=== PATIENT | male | born 1945 | race Caucasian/White ===

== ENCOUNTER 2017-03-30 08:18 | Inpatient (IN) | payer BC, OTHER ==
[2017-03-29 15:07] VITALS: BMI 29.8
[2017-03-30] MEDS ORDERED: LIDOCAINE HCL/PF 2% SDV 5ML VIAL ONE (08:42)
[2017-03-30] MEDS ORDERED: PROPOFOL 20 ML ONE ×2 (08:42)
[2017-03-30] MEDS ORDERED: ROCURONIUM BROMIDE 50 MG/5 ML VIAL ONE ×3 (08:43→10:56)
[2017-03-30] MEDS ORDERED: MIDAZOLAM HCL 2 MG/2 ML SINGLE DOSE VIAL ONE ×3 (08:43)
[2017-03-30] MEDS ORDERED: HEPARIN NA (PORCINE) 5,000 UNITS/ML 1ML VIAL ONE ×2 (08:44→10:50)
--- NOTE | 2017-03-30 09:20 | HP ---
History & Physical Update - History History: No Change - Physical Physical: No Change - Assessment Assessment: No Change - Plan Plan: No Change (Here today for elective endovascular repair of his AAA)
[2017-03-30] MEDS ORDERED: CEFAZOLIN 2 GM/D5W 50 ML IVPB ONE (09:30)
[2017-03-30] MEDS ORDERED: ETOMIDATE 20 MG/10 ML AMPUL IVPUSH ONE (09:50)
[2017-03-30] MEDS ORDERED: PHENYLEPHRINE HCL 10 MG/1 ML SINGLE DOSE VIAL ONE (09:55)
[2017-03-30] MEDS ORDERED: ceFAZolin SODIUM 1 GM VIAL IVPB ONE (10:10)
[2017-03-30] MEDS ORDERED: ceFAZolin SODIUM 1 GM VIAL ONE (10:11)
[2017-03-30] MEDS ORDERED: VASOPRESSIN 20 UNITS/ML VIAL IV ONE (10:18)
[2017-03-30] MEDS ORDERED: DEXAMETHASONE SOD PHOSPHATE 4 MG/1 ML VIAL ONE (10:51)
[2017-03-30] MEDS ORDERED: NEOSTIGMINE METHYLSULFATE 0.5 MG/ML - 10 ML MDV ONE (11:38)
[2017-03-30] MEDS ORDERED: GLYCOPYRROLATE 0.2 MG/1 ML VIAL ONE (11:42)
--- NOTE | 2017-03-30 12:15 | OP ---
Operative Note - Note: Operative Date: 03/30/17 Pre-Operative Diagnosis: AAA Operation: endovascular repair of AAA Post-Operative Diagnosis: Same as Pre-op Surgeon: Dimas Luis Trimmer Machine: Remberto Durán Anesthesia: General Estimated Blood Loss (mls): 100 Operative Report Dictated: Yes
--- NOTE | 2017-03-30 12:20 | SURG ---
Surgery Slate Cutter Operator Note Slate Cutter Operator: Remberto Duárn PA-C Date of Service: 03/30/17 Diagnosis: Abdominal aortic aneurysm Procedure: Endovascular repair of abdominal aortic aneurysm I was present for the entirety of the operative procedure. For further detail, please refer to operative report. Visit type - Case Type Case Type: Scheduled Admission - New patient This patient is new to me today: Yes Date on this admission: 03/30/17
[2017-03-30] MEDS ORDERED: [UNRECOGNIZED DRUG - REMARK] PO PRN (12:23)
[2017-03-30] MEDS ORDERED: PATIENT'S OWN MEDICATION (NON-FORMULARY) (Hydrocodone/Acetaminophen [Vicodin 5-300 Mg Tabl PO PRN (12:23)
[2017-03-30] MEDS ORDERED: HYDROmorphone HCL CARPU-JECT 2 MG/1 ML DISP.SYRIN IVPUSH ONE ×3 (12:25→12:45)
[2017-03-30] MEDS ORDERED: HYDROmorphone HCL CARPU-JECT 2 MG/1 ML DISP.SYRIN ONE (12:30)
[2017-03-30] MEDS ORDERED: ACETAMINOPHEN 1000 MG/100 ML VIAL (NON FORMULARY) IVPB ONE ×2 (12:40→13:15)
[2017-03-30] MEDS ORDERED: ONDANSETRON 4 MG/2 ML VIAL IVPUSH PRN (14:00)
--- NOTE | 2017-03-30 16:10 | CONSULT ---
Consultation: REQUESTING PROVIDER: Dr Dimas Luis CONSULT REQUEST: We have been asked to medically evaluate this patient for ( post up ccu care). HISTORY OF PRESENT ILLNESS: This is a 68 yo M, with a PMH of AAA, past smoking, HTN, HLD, COPD, NIDDM2, bilateral inguinal hernia repair, and multiple lumbar disc herniations, who presents immediately s/p uncomplicated elective EVAR with minimal procedural blood loss of 100 cc. Post op patient was extubated and remains aaox3, afebrile and hemodynamically stable. Pain is well controlled with dilaudid and percocet. Guerra and A line to come out at 7 am prior to d/c. Patient complains of chronic back pain but denies chest pain, palpitations, sob, difficulty swallowing, leg pain, abd pain, n/v. REVIEW OF SYSTEMS: CONSTITUTIONAL: Absent: fever, chills HEENT: Absent: rhinorrhea, nasal congestion, difficulty swallowing, visual changes CARDIOVASCULAR: Absent: chest pain, syncope, palpitations, irregular heart rate, lightheadedness , peripheral edema RESPIRATORY: Absent: cough, shortness of breath, orthopnea, hemoptysis GASTROINTESTINAL: Absent: abdominal pain, abdominal distension, nausea, vomiting, diarrhea, constipation, melena, hematochezia GENITOURINARY: Absent: dysuria MUSCULOSKELETAL: Absent: myalgia, arthralgia, neck pain SKIN: Absent: rash, itching, pallor HEMATOLOGIC/IMMUNOLOGIC: Absent: easy bleeding, easy bruising ENDOCRINE: Absent: heat intolerance, cold intolerance NEUROLOGIC: Absent: headache, focal weakness or paresthesias PSYCHIATRIC: Absent: anxiety, depression PHYSICAL EXAMINATION Vital Signs - 24 hr 03/30/17 03/30/17 03/30/17 08:41 08:47 12:09 Temperature 97.5 F L 98.3 F Pulse Rate 109 H 94 H Respiratory 20 16 Rate Blood Pressure 145/73 118/50 O2 Sat by Pulse 94 L 93 L Oximetry (%) 03/30/17 03/30/17 03/30/17 12:25 12:40 12:55 Temperature Pulse Rate 94 H 92 H 94 H Respiratory 16 16 16 Rate Blood Pressure 107/60 104/60 126/60 O2 Sat by Pulse 96 96 96 Oximetry (%) 03/30/17 03/30/17 03/30/17 13:10 13:25 13:40 Temperature Pulse Rate 96 H 92 H 96 H Respiratory 16 16 16 Rate Blood Pressure 112/50 126/62 119/69 O2 Sat by Pulse 96 96 96 Oximetry (%) 03/30/17 03/30/17 13:55 15:18 Temperature 98.3 F 97.5 F L Pulse Rate 96 H 102 H Respiratory 16 20 Rate Blood Pressure 122/60 120/66 O2 Sat by Pulse Oximetry (%) GENERAL: Awake, alert, and fully oriented, in no acute distress. HEAD: Normal with no signs of trauma. EYES: Pupils equal, round and reactive to light, extraocular movements intact, sclera anicteric, conjunctiva clear. L eye lateral gaze (chronic) EARS, NOSE, THROAT: Moist mucous membranes. NECK: supple without, JVD LUNGS: Breath sounds equal, clear to auscultation bilaterally. HEART: Regular rate and rhythm, normal S1 and S2 ABDOMEN: Soft, nontender, not distended, normoactive bowel sounds, no guarding, no rebound, no masses. clean dressings on b/l ingional regions, no evidence of hematoma or bleeding MUSCULOSKELETAL: No CVA tenderness. UPPER EXTREMITIES: 2+ pulses, warm, well-perfused. No peripheral edema. LOWER EXTREMITIES: dopplerable dp and pt pulses, warm, well-perfused. No calf tenderness. No peripheral edema. no evidence of peripheral arterial clot in toes NEUROLOGICAL: Cranial nerves II-XII intact aside from L meidal rectus which appears impaired. Normal speech. PSYCHIATRIC: Cooperative. Good eye contact. Appropriate mood and affect. SKIN: Warm, dry, normal turgor Laboratory Results - last 24 hr 03/30/17 03/30/17 03/30/17 08:19 08:21 08:43 POC Glucometer 144 Blood Type A POSITIVE A POSITIVE Antibody Screen Negative Crossmatch See Detail Active Medications Generic Name Dose Route Start Last Admin Trade Name Freq PRN Reason Stop Dose Admin Aclidinium [place] 1 puff 03/30/17 22:00 Tudorza - IH BID KIANA Aspirin 81 mg 03/31/17 10:00 Ecotrin - PO DAILY KIANA Enalapril Maleate 10 mg 03/31/17 10:00 Vasotec - PO DAILY KIANA Fentanyl 50 mcg 03/30/17 14:00 Sublimaze Injection - IVPUSH 04/02/17 14:01 [id number] PRN PAIN Gemfibrozil 600 mg 03/30/17 16:30 Lopid - PO BID@0700,1630 [facility] Heparin Sodium (Porcine) 5,000 unit 03/30/17 18:00 Heparin - SQ Q8H-IV KIANA Hydromorphone HCl 1 mg 03/30/17 12:25 Dilaudid Injection - IVPUSH Q4H PRN PAIN Cefazolin Sodium/Dextrose 50 mls @ 100 mls/hr 03/30/17 18:00 Ancef 2 Gm Premixed Ivpb - IVPB 03/31/17 17:59 Q8HIV KIANA Lactated Ringer's 1,000 mls @ 75 mls/hr 03/30/17 14:00 Lactated Ringers Solution IV ASDIR [facility] Metformin HCl 1,000 mg 03/30/17 16:30 Glucophage Xr - PO BIDAC KIANA Non-Formulary Medication 10 mg 03/30/17 12:23 Chlorpheniramine Maleate [Allergy Relief] PO PRN PRN ALLERGIES Non-Formulary Medication 1 each 03/30/17 12:23 Hydrocodone/Acetaminophen [Vicodin 5-300 Mg Tablet] PO PRN PRN BACK PAIN Ondansetron HCl 4 mg 03/30/17 14:00 Zofran Injection IVPUSH 03/30/17 20:01 Q6H PRN NAUSEA AND/OR VOMITING Tamsulosin HCl 0.4 mg 03/31/17 10:00 Flomax - PO DAILY [facility] Zolpidem Tartrate 5 mg 03/30/17 22:00 Ambien - PO [facility] ASSESSMENT/PLAN: This is a 68 yo M, with a PMH of AAA, smoking, HTN, HLD, COPD, NIDDM2, bilateral inguinal hernia repair, and multiple lumbar disc herniations, who presents immediately s/p uncomplicated elective EVAR with minimal procedural blood loss of 100 cc. Neuro -AAOx3 Pulm *COPD -successfully extubated; stable -NC O2 PRN -tudorza CV *AAA -POD0 s/p elective EVAR -uncomplicated. Blood loss 100cc -f/u labs, monitor h/h -monitor peripheral pulses with doppler -Hep SQ -IV hydration -tele monitoring -remove a line at 7 am -dilaudid, percocet pain control -Ancef ppx -ASA 81 d *HTN -enalapril 10d *HLD -Lopid 600 bid GI/ -remove guerra at 7 am Endocrine *NIDDM -metformin *BPH -flomax FEN LR@75 f/u lytes diabetic diet Hep, diet Dispo: We will continue to follow the patient. Thank you for this consultative opportunity. Problem List - Problems (1) Abdominal aortic aneurysm Code(s): I71.4 - ABDOMINAL AORTIC ANEURYSM, WITHOUT RUPTURE (2) Left inguinal hernia Code(s): K40.90 - UNIL INGUINAL HERNIA, W/O OBST OR GANGR, NOT SPCF RECUR (3) Lower back pain Code(s): M54.5 - LOW BACK PAIN (4) HTN (hypertension) Code(s): I10 - ESSENTIAL (PRIMARY) HYPERTENSION (5) HLD (hyperlipidemia) Code(s): E78.5 - HYPERLIPIDEMIA, UNSPECIFIED (6) Diabetes Code(s): E11.9 - TYPE 2 DIABETES MELLITUS WITHOUT COMPLICATIONS (7) COPD (chronic obstructive pulmonary disease) Code(s): J44.9 - CHRONIC OBSTRUCTIVE PULMONARY DISEASE, UNSPECIFIED Visit type - Emergency Visit Emergency Visit: No - New Patient This patient is new to me today: Yes Date on this admission: 03/30/17 - Critical Care Critical Care patient: Yes Total Critical Care Time (in minutes): 35 Critical Care Statement: The care of this patient involved high complexity decision making to prevent further life threatening deterioration of the patient 's condition and/or to evaluate & treat vital organ system(s) failure or risk of failure.
[2017-03-30] MEDS: HYDROmorphone HCL CARPU-JECT 1 MG/1 ML DISP.SYRIN IVPUSH PRN ×2 (16:28→20:30)
[2017-03-30] MEDS: LACTATED RINGERS SOLUTION 1,000 ML IV SCH (16:30)
[2017-03-30] MEDS: GEMFIBROZIL 600 MG TABLET (FP) PO SCH (17:27)
[2017-03-30] MEDS: CEFAZOLIN 2 GM/D5W 50 ML IVPB SCH (17:28)
[2017-03-30] MEDS: HEPARIN NA (PORCINE) 5,000 UNITS/ML 1ML VIAL SQ SCH (17:29)
[2017-03-30 17:52] LABS: MCH 30.9 pg (25.7-33.7); MCHC 33.7 g/dl (32.0-35.9); MEAN CELL VOLUME 91.9 fl (80-96); MEAN PLT VOLUME 8.6 fl (7.5-11.1); PLATELET COUNT 300 K/MM3 (134-434); RDW 13.3 % (11.9-15.9); WHITE BLOOD COUNT 11.9 K/mm3 (4.0-10.0)
[2017-03-30 18:11] LABS: ALBUMIN 3.5 g/dl (3.4-5.0); ANION GAP 7 (8-16); BILIRUBIN,TOTAL 0.3 mg/dL (0.2-1.0); CALCIUM 8.8 mg/dL (8.5-10.1); CO2 25 mmol/L (21-32); GLUCOSE,RANDOM 125 mg/dL (74-106); MAGNESIUM 1.7 mg/dL (1.8-2.4); PHOSPHOROUS 3.1 mg/dL (2.5-4.9); SGOT/AST 19 U/L (15-37); SGPT/ALT 30 U/L (12-78)
[2017-03-30 18:15] LABS: ALK PHOS 44 U/L (45-117); CPK 203 IU/L (39-308); TOT PROT 6.8 g/dl (6.4-8.2); TROPONIN I < 0.02 ng/ml (0.00-0.05)
[2017-03-30] MEDS: oxyCODONE HCL 5 MG TABLET PO PRN (18:50)
[2017-03-30] MEDS ORDERED: MAGNESIUM SULF 50% (8.12 MEQ/2 ML-1 GM VIAL) IVPB ONE (20:42)
[2017-03-30] MEDS ORDERED: ZOLPIDEM TARTRATE 5 MG TABLET PO ONE (21:03)
[2017-03-30] MEDS ORDERED: ZOLPIDEM TARTRATE 5 MG TABLET PO SCH (22:00)
[2017-03-30] MEDS: ACLIDINIUM BROMIDE 400 MCG/INH AERO.POWD IH SCH (22:31)
[2017-03-31] MEDS: HEPARIN NA (PORCINE) 5,000 UNITS/ML 1ML VIAL SQ SCH ×3 (03:00→21:38)
[2017-03-31] MEDS: HYDROmorphone HCL CARPU-JECT 1 MG/1 ML DISP.SYRIN IVPUSH PRN ×2 (03:35→09:48)
[2017-03-31] MEDS: CEFAZOLIN 2 GM/D5W 50 ML IVPB SCH ×3 (04:00→17:20)
[2017-03-31] MEDS: GEMFIBROZIL 600 MG TABLET (FP) PO SCH ×2 (06:11→16:38)
[2017-03-31 07:00] LABS: MCH 30.8 pg (25.7-33.7); MCHC 33.6 g/dl (32.0-35.9); MEAN CELL VOLUME 91.9 fl (80-96); MEAN PLT VOLUME 8.9 fl (7.5-11.1); PLATELET COUNT 268 K/MM3 (134-434); RDW 13.4 % (11.9-15.9); WHITE BLOOD COUNT 9.3 K/mm3 (4.0-10.0)
[2017-03-31 08:30] LABS: ANION GAP 7 (8-16); CALCIUM 8.5 mg/dL (8.5-10.1); CO2 26 mmol/L (21-32); CREATININE 0.8 mg/dL (0.7-1.3); GLUCOSE,RANDOM 111 mg/dL (74-106); MAGNESIUM 1.9 mg/dL (1.8-2.4); PHOSPHOROUS 2.7 mg/dL (2.5-4.9)
--- NOTE | 2017-03-31 09:07 | PN ---
Physical Exam: 24H Events: SUBJECTIVE: Patient seen and examined OBJECTIVE: Vital Signs Period Temp Pulse Resp BP Sys/Fontaine Pulse Ox Last 24 Hr 97.5 F-99.9 F 83-102 16-22 104-131/50-76 93-96 Intake & Output 03/28/17 03/29/17 03/30/17 03/31/17 23:59 23:59 23:59 23:59 Intake Total 3900 637.5 Output Total 1800 Balance 2100 637.5 Weight 99.79 kg General: CBC, BMP 03/31/17 05:30 03/31/17 05:30 Hepatic Panel Total Bilirubin 0.3 mg/dL (0.2-1.0) 03/30/17 16:55 AST 19 U/L (15-37) 03/30/17 16:55 ALT 30 U/L (12-78) 03/30/17 16:55 Alkaline Phosphatase 44 U/L (45-117) L 03/30/17 16:55 Albumin 3.5 g/dl (3.4-5.0) 03/30/17 16:55 Active Medications Aclidinium [place] (Tudorza -) 1 puff IH BID [facility] Last Admin: 03/30/17 22:31 Dose: Not Given Aspirin (Ecotrin -) 81 mg PO DAILY [facility] Enalapril Maleate (Vasotec -) 10 mg PO DAILY [facility] Fentanyl (Sublimaze Injection -) 50 mcg IVPUSH [id number] PRN PRN Reason: PAIN Stop: 04/02/17 14:01 Last Admin: 03/30/17 21:00 Dose: 50 mcg Gemfibrozil (Lopid -) 600 mg PO BID@0700,1630 [facility] Last Admin: 03/31/17 06:11 Dose: 600 mg Heparin Sodium (Porcine) (Heparin -) 5,000 unit SQ Q8H-IV [facility] Last Admin: 03/31/17 03:00 Dose: 5,000 unit Hydromorphone HCl (Dilaudid Injection -) 1 mg IVPUSH Q4H PRN PRN Reason: PAIN Last Admin: 03/31/17 03:35 Dose: 1 mg Cefazolin Sodium/Dextrose (Ancef 2 Gm Premixed Ivpb -) 50 mls @ 100 mls/hr IVPB Q8HIV [facility] Stop: 03/31/17 17:59 Last Admin: 03/31/17 04:00 Dose: 100 mls/hr Lactated Ringer's (Lactated Ringers Solution) 1,000 mls @ 75 mls/hr IV ASDIR [facility] Last Admin: 03/30/17 16:30 Dose: 75 mls/hr Metformin HCl (Glucophage Xr -) 1,000 mg PO BIDAC [facility] Last Admin: 03/31/17 06:10 Dose: Not Given Non-Formulary Medication (Chlorpheniramine Maleate [Allergy Relief]) 10 mg PO PRN PRN PRN Reason: ALLERGIES Non-Formulary Medication (Hydrocodone/Acetaminophen [Vicodin 5-300 Mg Tablet]) 1 each PO PRN PRN PRN Reason: BACK PAIN Oxycodone HCl (Roxicodone -) 10 mg PO Q4H PRN PRN Reason: PAIN Last Admin: 03/30/17 18:50 Dose: 10 mg Tamsulosin HCl (Flomax -) 0.4 mg PO DAILY [facility] Zolpidem Tartrate (Ambien -) 5 mg PO HS [facility] Last Admin: 03/30/17 22:31 Dose: Not Given ASSESSMENT/PLAN:
[2017-03-31] MEDS ORDERED: ENALAPRIL MALEATE 10 MG TABLET (FP) PO SCH (10:00)
[2017-03-31] MEDS ORDERED: TAMSULOSIN HCL 0.4 MG CAP.ER.24H (FP) PO SCH (10:00)
[2017-03-31] MEDS ORDERED: ASPIRIN COATED 81 MG TABLET.EC PO SCH (10:00)
[2017-03-31] MEDS: ACLIDINIUM BROMIDE 400 MCG/INH AERO.POWD IH SCH ×2 (11:10→21:39)
[2017-03-31] MEDS: oxyCODONE HCL 5 MG TABLET PO PRN ×2 (12:14→19:32)
--- NOTE | 2017-03-31 12:17 | PN ---
Teaching Attending Note Name of Resident: Tamela Bullard ATTENDING PHYSICIAN STATEMENT I saw and evaluated the patient. I reviewed the resident's note and discussed the case with the resident. I agree with the resident's findings and plan as documented. SUBJECTIVE: Patient seen and examined in the ICU. Awake and alert. No CP or SOB. No bleeding from surgical site. Intake & Output 03/28/17 03/29/17 03/30/17 03/31/17 23:59 23:59 23:59 23:59 Intake Total 3900 637.5 Output Total 1800 Balance 2100 637.5 Weight 220 lb Last Vital Signs Temp Pulse Resp BP Pulse Ox 99.8 F H 91 H 11 L 143/73 95 03/31/17 11:00 03/31/17 11:00 03/31/17 11:00 03/31/17 11:00 03/31/17 09:00 Active Medications Aclidinium [place] (Tudorza -) 1 puff IH BID [facility] Last Admin: 03/31/17 11:10 Dose: 1 puff Aspirin (Ecotrin -) 81 mg PO DAILY [facility] Last Admin: 03/31/17 09:50 Dose: 81 mg Enalapril Maleate (Vasotec -) 10 mg PO DAILY [facility] Last Admin: 03/31/17 09:50 Dose: 10 mg Fentanyl (Sublimaze Injection -) 50 mcg IVPUSH [id number] PRN PRN Reason: PAIN Stop: 04/02/17 14:01 Last Admin: 03/30/17 21:00 Dose: 50 mcg Gemfibrozil (Lopid -) 600 mg PO BID@0700,1630 [facility] Last Admin: 03/31/17 06:11 Dose: 600 mg Heparin Sodium (Porcine) (Heparin -) 5,000 unit SQ Q8H-IV [facility] Last Admin: 03/31/17 09:49 Dose: 5,000 unit Hydromorphone HCl (Dilaudid Injection -) 1 mg IVPUSH Q4H PRN PRN Reason: PAIN Last Admin: 03/31/17 09:48 Dose: 1 mg Cefazolin Sodium/Dextrose (Ancef 2 Gm Premixed Ivpb -) 50 mls @ 100 mls/hr IVPB Q8HIV [facility] Stop: 03/31/17 17:59 Last Admin: 03/31/17 09:49 Dose: 100 mls/hr Lactated Ringer's (Lactated Ringers Solution) 1,000 mls @ 75 mls/hr IV ASDIR [facility] Last Admin: 03/30/17 16:30 Dose: 75 mls/hr Insulin Aspart (Novolog Vial Sliding Scale -) 1 vial SQ ACHS [facility] PRN Reason: Protocol Oxycodone HCl (Roxicodone -) 10 mg PO Q4H PRN PRN Reason: PAIN Last Admin: 03/30/17 18:50 Dose: 10 mg Tamsulosin HCl (Flomax -) 0.4 mg PO DAILY [facility] Last Admin: 03/31/17 10:39 Dose: 0.4 mg Zolpidem Tartrate (Ambien -) 5 mg PO HS [facility] Last Admin: 03/30/17 22:31 Dose: Not Given GENERAL: Awake, alert, and fully oriented, in no acute distress. HEAD: Normal with no signs of trauma. EYES: Pupils equal, sclera anicteric, conjunctiva clear. L eye lateral gaze ( chronic) EARS, NOSE, THROAT: Moist mucous membranes. NECK: supple without, JVD LUNGS: Breath sounds equal, clear to auscultation bilaterally. HEART: Regular rate and rhythm, normal S1 and S2 ABDOMEN: Soft, nontender, not distended, (+) BS, clean dressings on b/l inguinal regions, no evidence of hematoma or bleeding MUSCULOSKELETAL: No CVA tenderness. UPPER EXTREMITIES: 2+ pulses, warm, well-perfused. No peripheral edema. LOWER EXTREMITIES: dopplerable dp and pt pulses, warm, well-perfused. No calf tenderness. No peripheral edema. no evidence of peripheral arterial clot in toes NEUROLOGICAL: Non-focal PSYCHIATRIC: Cooperative. Good eye contact. Appropriate mood and affect. SKIN: Warm, dry, normal turgor Laboratory Results - last 24 hr 03/30/17 03/30/17 03/30/17 16:55 16:55 16:55 WBC 11.9 H RBC 4.18 Hgb 12.9 D Hct 38.4 D MCV 91.9 MCH 30.9 MCHC 33.7 RDW 13.3 Plt Count 300 D MPV 8.6 Sodium 138 Potassium 5.7 H Chloride 106 Carbon Dioxide 25 Anion Gap 7 L BUN 20 H Creatinine 1.0 Creat Clearance w eGFR > 60 Random Glucose 125 H D Lactic Acid 1.2 Calcium 8.8 Phosphorus 3.1 Magnesium 1.7 L Total Bilirubin 0.3 AST 19 ALT 30 Alkaline Phosphatase 44 L Creatine Kinase 203 Creatine Kinase Index 0.4 CK-MB (CK-2) < 1.000 Troponin I < 0.02 Total Protein 6.8 Albumin 3.5 03/31/17 03/31/17 05:30 05:30 WBC 9.3 RBC 4.00 Hgb 12.3 Hct 36.8 MCV 91.9 MCH 30.8 MCHC 33.6 RDW 13.4 Plt Count 268 MPV 8.9 Sodium 136 Potassium 4.6 Chloride 103 Carbon Dioxide 26 Anion Gap 7 L BUN 15 D Creatinine 0.8 Creat Clearance w eGFR Random Glucose 111 H Lactic Acid Calcium 8.5 Phosphorus 2.7 Magnesium 1.9 Total Bilirubin AST ALT Alkaline Phosphatase Creatine Kinase Creatine Kinase Index CK-MB (CK-2) Troponin I Total Protein Albumin ASSESSMENT/PLAN: S/P EVAR due to AAA Smoker HTN HPL HLD COPD NIDDM2 Bilateral inguinal hernia repair Multiple lumbar disc herniations Follow CBC O2 as needed Incentive Spirometry BD TX [facility] Problem List - Problems (1) Abdominal aortic aneurysm Code(s): I71.4 - ABDOMINAL AORTIC ANEURYSM, WITHOUT RUPTURE (2) Left inguinal hernia Code(s): K40.90 - UNIL INGUINAL HERNIA, W/O OBST OR GANGR, NOT SPCF RECUR (3) Lower back pain Code(s): M54.5 - LOW BACK PAIN (4) HTN (hypertension) Code(s): I10 - ESSENTIAL (PRIMARY) HYPERTENSION (5) HLD (hyperlipidemia) Code(s): E78.5 - HYPERLIPIDEMIA, UNSPECIFIED (6) Diabetes Code(s): E11.9 - TYPE 2 DIABETES MELLITUS WITHOUT COMPLICATIONS (7) COPD (chronic obstructive pulmonary disease) Code(s): J44.9 - CHRONIC OBSTRUCTIVE PULMONARY DISEASE, UNSPECIFIED ASSESSMENT/PLAN: S/P EVAR due to AAA Smoker HTN HPL HLD COPD NIDDM2 Bilateral inguinal hernia repair Multiple lumbar disc herniations Follow CBC O2 as needed Incentive Spirometry BD TX [facility] Floor ABX per ID Dr Blakely Critical care time spent in reviewing chart, evaluating patient and formulating plan - 35 minutes.
[2017-03-31] MEDS ORDERED: HYDROmorphone HCL CARPU-JECT 1 MG/1 ML DISP.SYRIN IVPUSH PRN (14:03)
[2017-03-31] MEDS ORDERED: LACTATED RINGERS SOLUTION 1,000 ML IV SCH (14:03)
[2017-03-31] MEDS ORDERED: CEFAZOLIN 2 GM/D5W 50 ML IVPB SCH (14:03)
--- NOTE | 2017-03-31 14:09 | PN ---
Physical Exam: SUBJECTIVE: Patient seen and examined by me at bedside. Patient S/P elective endovascular repair of AAA day #1 with no complications. Patient offers no complaints. Otherwise, patient denies fever, chills, nausea, vomiting, chest pain, palpitations, shortness of breath. OBJECTIVE: Vital Signs Period Temp Pulse Resp BP Sys/Fontaine Pulse Ox Last 24 Hr 97.5 F-100.1 F 83-102 10-22 116-143/52-76 93-96 GENERAL: The patient is awake, alert, and fully oriented, in no acute distress. LUNGS: Breath sounds equal, clear to auscultation bilaterally, no wheezes, no crackles, no accessory muscle use. HEART: Regular rate and rhythm, S1, S2 without murmur, rub or gallop. ABDOMEN: Soft, mild tenderness upon palpation of lower abdomen with wound dressing in bilateral lower abdomen C/D/I, nondistended, normoactive bowel sounds, no guarding EXTREMITIES: 2+ dt and pt pulses. no peripheral edema. No evidence of peripheral arterial clot in toes Laboratory Results - last 24 hr 03/30/17 03/30/17 03/30/17 16:55 16:55 16:55 WBC 11.9 H RBC 4.18 Hgb 12.9 D Hct 38.4 D MCV 91.9 MCH 30.9 MCHC 33.7 RDW 13.3 Plt Count 300 D MPV 8.6 Sodium 138 Potassium 5.7 H Chloride 106 Carbon Dioxide 25 Anion Gap 7 L BUN 20 H Creatinine 1.0 Creat Clearance w eGFR > 60 Random Glucose 125 H D Lactic Acid 1.2 Calcium 8.8 Phosphorus 3.1 Magnesium 1.7 L Total Bilirubin 0.3 AST 19 ALT 30 Alkaline Phosphatase 44 L Creatine Kinase 203 Creatine Kinase Index 0.4 CK-MB (CK-2) < 1.000 Troponin I < 0.02 Total Protein 6.8 Albumin 3.5 03/31/17 03/31/17 05:30 05:30 WBC 9.3 RBC 4.00 Hgb 12.3 Hct 36.8 MCV 91.9 MCH 30.8 MCHC 33.6 RDW 13.4 Plt Count 268 MPV 8.9 Sodium 136 Potassium 4.6 Chloride 103 Carbon Dioxide 26 Anion Gap 7 L BUN 15 D Creatinine 0.8 Creat Clearance w eGFR Random Glucose 111 H Lactic Acid Calcium 8.5 Phosphorus 2.7 Magnesium 1.9 Total Bilirubin AST ALT Alkaline Phosphatase Creatine Kinase Creatine Kinase Index CK-MB (CK-2) Troponin I Total Protein Albumin Active Medications Generic Name Dose Route Start Last Admin Trade Name Freq PRN Reason Stop Dose Admin Aclidinium [place] 1 puff 03/31/17 22:00 Tudorza - IH BID [facility] Aspirin 81 mg 04/01/17 10:00 Ecotrin - PO DAILY [facility] Enalapril Maleate 10 mg 04/01/17 10:00 Vasotec - PO DAILY [facility] Fentanyl 50 mcg 03/31/17 14:03 Sublimaze Injection - IVPUSH 04/02/17 14:01 [id number] PRN PAIN Gemfibrozil 600 mg 03/31/17 16:30 Lopid - PO BID@0700,1630 [facility] Heparin Sodium (Porcine) 5,000 unit 03/31/17 18:00 Heparin - SQ Q8H-IV [facility] Hydromorphone HCl 1 mg 03/31/17 14:03 Dilaudid Injection - IVPUSH Q4H PRN PAIN Cefazolin Sodium/Dextrose 50 mls @ 100 mls/hr 03/31/17 14:03 Ancef 2 Gm Premixed Ivpb - IVPB 03/31/17 17:59 Q8HIV [facility] Lactated Ringer's 1,000 mls @ 75 mls/hr 03/31/17 14:03 Lactated Ringers Solution IV ASDIR [facility] Insulin Aspart 1 vial 03/31/17 16:30 Novolog Vial Sliding Scale - SQ ACHS [facility] Protocol Oxycodone HCl 10 mg 03/31/17 14:03 Roxicodone - PO Q4H PRN PAIN Tamsulosin HCl 0.4 mg 04/01/17 10:00 Flomax - PO DAILY [facility] Zolpidem Tartrate 5 mg 03/31/17 22:00 Ambien - PO HS [facility] ASSESSMENT/PLAN: Patient is a 68 year old male with a PMHx of AAA, HTN, HLD, COPD, NIDDM2, who presented for elective EVAR and is now s/p EVAR here for observation. Cardiovascular: #AAA S/P EVAR -POD #1 with no complications -Frequent pulse checks with doppler -Pain control with Dilaudid 1mg Q4H PRN and Roxicodone PO 10mg Q4H -Continue Prophylaxis antibipitics with Ancef 2gm IV Q8H -Continue Heparin SQ 5000 units Q8H -Continue ASA 81mg PO daily #HTN -Continue Enalipril 10mg daily #HLD -Continue Lopid 600mg BID Pulmonology #COPD -Successfully extubated after procedure and stable -NC 02 PRN -Continue Tudorza Endocrine #NIDDMII -ISS -BGM -Continue Flomax 0.4mg daily FEN -On no fluids -Electrolytes wnl -Diabetic diet Prophylaxis -Heparin 5000 units SQ Q8H -No GI requirement Disposition -Deconditioning: PT -Full code -Transferred to the floors Visit type - Emergency Visit Emergency Visit: Yes ED Registration Date: 03/30/17 Care time: The patient presented to the Emergency Department on the above date and was hospitalized for further evaluation of their emergent condition. - New Patient This patient is new to me today: Yes Date on this admission: 03/31/17 - Critical Care Critical Care patient: Yes Total Critical Care Time (in minutes): 35 Critical Care Statement: The care of this patient involved high complexity decision making to prevent further life threatening deterioration of the patient 's condition and/or to evaluate & treat vital organ system(s) failure or risk of failure.
--- NOTE | 2017-03-31 14:12 | PN ---
Progress Note, Physician Chief Complaint: constipated no other complaints - Current Medication List Current Medications: Active Medications Aclidinium [place] (Tudorza -) 1 puff IH BID [facility] Aspirin (Ecotrin -) 81 mg PO DAILY [facility] Enalapril Maleate (Vasotec -) 10 mg PO DAILY [facility] Fentanyl (Sublimaze Injection -) 50 mcg IVPUSH [id number] PRN PRN Reason: PAIN Stop: 04/02/17 14:01 Gemfibrozil (Lopid -) 600 mg PO BID@0700,1630 [facility] Heparin Sodium (Porcine) (Heparin -) 5,000 unit SQ Q8H-IV [facility] Hydromorphone HCl (Dilaudid Injection -) 1 mg IVPUSH Q4H PRN PRN Reason: PAIN Cefazolin Sodium/Dextrose (Ancef 2 Gm Premixed Ivpb -) 50 mls @ 100 mls/hr IVPB Q8HIV [facility] Stop: 03/31/17 17:59 Lactated Ringer's (Lactated Ringers Solution) 1,000 mls @ 75 mls/hr IV ASDIR [facility] Insulin Aspart (Novolog Vial Sliding Scale -) 1 vial SQ ACHS [facility] PRN Reason: Protocol Oxycodone HCl (Roxicodone -) 10 mg PO Q4H PRN PRN Reason: PAIN Tamsulosin HCl (Flomax -) 0.4 mg PO DAILY [facility] Zolpidem Tartrate (Ambien -) 5 mg PO HS [facility] - Objective Vital Signs: Vital Signs Temperature 99.8 F H 03/31/17 11:00 Pulse Rate 100 H 03/31/17 13:00 Respiratory Rate 10 L 03/31/17 13:00 Blood Pressure 122/66 03/31/17 13:00 O2 Sat by Pulse Oximetry (%) 95 03/31/17 09:00 Constitutional: Yes: Well Nourished Eyes: Yes: WNL HENT: Yes: WNL Neck: Yes: WNL Cardiovascular: Yes: WNL Respiratory: Yes: SOB on Exertion Gastrointestinal: Yes: Hypoactive Bowel Sounds ...Rectal Exam: Yes: Deferred, Sphincter Tone Normal Breast(s): Yes: WNL Musculoskeletal: Yes: Back Pain Extremities: Yes: WNL Edema: No ...Motor Strength: WNL Psychiatric: Yes: WNL Labs: CBC, BMP 03/31/17 05:30 03/31/17 05:30 Assessment/Plan mirilax po 17 gms incentive spirometry oob ? d/c in am
--- NOTE | 2017-03-31 15:18 | PN ---
Progress Note (short form) - Note Progress Note: Pt seen this am, no complaints of leg pain. Voiding on own. guerra removed earlier today. tolerating a diet. Vital Signs Period Temp Pulse Resp BP Sys/Fontaine Pulse Ox Last 24 Hr 97.5 F-100.1 F 83-102 10-22 116-143/52-76 93-96 GEn: A&0x3, NAD ABD: soft, slight distended, non-tender. b/l dressing c/d/i LE: feet warm to touch B/l. Dorsi/plantar flexion 5/5 b/l. no calf tenderness or swelling b/l CBC, BMP 03/31/17 05:30 03/31/17 05:30 A/P: s/p EVAR, POD#1 cont regular diet oob to chair/ambulate Heparin SQ for DVT ppx continue aspirin plan for transfer to the floor as per ICU Stool softner ordered D/w Dr. Luis
[2017-03-31] MEDS ORDERED: HEMOQUE TEST 1 EACH EACH ONE ×2 (16:31→17:19)
[2017-03-31] MEDS: INSULIN SLIDING SCALE (NOVOLOG) 1 VIAL SQ SCH ×2 (16:38→21:33)
--- NOTE | 2017-03-31 17:18 | PN ---
Progress Note (short form) - Note Progress Note: Vascular surgery Pt seen and examined. S/P AAA endovascular repair. Doing well . Can be transfered to floor. Once ambulating can go home. Dimas jay DO
[2017-03-31] MEDS: DOCUSATE SODIUM 100 MG CAPSULE (FP) PO SCH ×2 (19:32→21:46)
[2017-03-31] MEDS ORDERED: INSULIN (NOVOLOG) ASPART 100 UNITS/ML 10ML VIAL ONE (20:29)
[2017-03-31] MEDS ORDERED: ZOLPIDEM TARTRATE 5 MG TABLET PO SCH (22:00)
[2017-03-31] MEDS ORDERED: DOCUSATE SODIUM 100 MG CAPSULE (FP) PO SCH (22:00)
[2017-04-01] MEDS: oxyCODONE HCL 5 MG TABLET PO PRN ×3 (00:22→13:18)
[2017-04-01] MEDS: CEFAZOLIN 2 GM/D5W 50 ML IVPB SCH ×2 (01:52→09:29)
[2017-04-01] MEDS: HEPARIN NA (PORCINE) 5,000 UNITS/ML 1ML VIAL SQ SCH ×2 (06:19→13:17)
[2017-04-01] MEDS: DOCUSATE SODIUM 100 MG CAPSULE (FP) PO SCH ×2 (06:20→13:18)
[2017-04-01] MEDS: INSULIN SLIDING SCALE (NOVOLOG) 1 VIAL SQ SCH ×2 (06:21→12:47)
[2017-04-01] MEDS: GEMFIBROZIL 600 MG TABLET (FP) PO SCH (06:21)
[2017-04-01 07:14] VITALS: TEMP 98.4
[2017-04-01 08:03] LABS: BASOPHIL 0.6 % (0-2.0); EOSINOPHIL 0.6 % (0-4.5); MCH 30.3 pg (25.7-33.7); MCHC 33.7 g/dl (32.0-35.9); MEAN CELL VOLUME 90.2 fl (80-96); MEAN PLT VOLUME 8.6 fl (7.5-11.1); NEUTROPHILS 70.1 % (42.8-82.8); PLATELET COUNT 248 K/MM3 (134-434); WHITE BLOOD COUNT 9.8 K/mm3 (4.0-10.0)
[2017-04-01] MEDS: LACTATED RINGERS SOLUTION 1,000 ML IV SCH (08:14)
[2017-04-01 08:26] VITALS: BP 143/80
[2017-04-01] MEDS ORDERED: TAMSULOSIN HCL 0.4 MG CAP.ER.24H (FP) PO SCH (08:30)
[2017-04-01 08:31] LABS: ALBUMIN 3.3 g/dl (3.4-5.0); ANION GAP 10 (8-16); CALCIUM 8.5 mg/dL (8.5-10.1); CO2 25 mmol/L (21-32); GLUCOSE,RANDOM 99 mg/dL (74-106); MAGNESIUM 1.8 mg/dL (1.8-2.4)
[2017-04-01 08:35] LABS: ALK PHOS 37 U/L (45-117); BILIRUBIN,TOTAL 0.7 mg/dL (0.2-1.0); CREATININE 0.9 mg/dL (0.7-1.3); PHOSPHOROUS 2.2 mg/dL (2.5-4.9); SGOT/AST 19 U/L (15-37); SGPT/ALT 20 U/L (12-78); TOT PROT 6.6 g/dl (6.4-8.2)
[2017-04-01] MEDS: ACLIDINIUM BROMIDE 400 MCG/INH AERO.POWD IH SCH (09:30)
[2017-04-01] MEDS ORDERED: ASPIRIN COATED 81 MG TABLET.EC PO SCH (10:00)
[2017-04-01] MEDS ORDERED: POLYETHYLENE GLYCOL 3350 119 GM BTL PO SCH (10:00)
[2017-04-01] MEDS ORDERED: ENALAPRIL MALEATE 10 MG TABLET (FP) PO SCH (10:00)
--- NOTE | 2017-04-01 11:45 | PN ---
Progress Note (short form) - Note Progress Note: Vascular surgery Pt seen and examined. Doing well. Dressing changed. Can be D/C home. Has appt for apr 10. Will send percocet script to pharmacy Will give enema for constipation Dimas jay DO
[2017-04-01] MEDS ORDERED: SODIUM PHOSPHATE/NA BIPHOS 133 ML ENEMA PR ONE (12:30)
[2017-04-01 14:26] VITALS: PULSE 105
--- NOTE | 2017-04-06 08:05 | OP ---
DATE OF OPERATION: 03/30/2017 PREOPERATIVE DIAGNOSIS: A 5.6-cm abdominal aortic aneurysm. POSTOPERATIVE DIAGNOSIS: A 5.6-cm abdominal aortic aneurysm. PROCEDURE: Endovascular repair of abdominal aortic aneurysm. SURGEON: Dimas Anglin DO ANESTHESIA: General. BLOOD LOSS: 100 mL. The patient is a 72-year-old male that was an ex-smoker in the past for about 40 years. Has a 5.6-cm triple "A." Two years ago, the abdominal aortic aneurysm was about 4.6 and now has grown to 5.6 which is the reason why we are repairing it. Patient was consented for the procedure, understanding all risks, benefits, alternatives. Was then brought into the operating room. Once in the operating room was laid on the operating room table in the supine manner and the area of the bilateral groins and thighs and the entire chest below the nipples was prepped and draped in a sterile surgical manner. We then under ultrasound guidance visualized the right and left common femoral arteries and a transverse incision was drawn around it. We then went ahead and working with the SARAH Durán we were able to open both groins. Using a 15 blade, we were able to make an incision in the right groin and the left groin. Bovie electrocautery was used to control hemostasis and we were able to get through all the subcutaneous tissue and get down into the femoral sheath. Femoral sheath was then opened using Metzenbaum scissors and we were able to then dissect out our common femoral artery and vessel loops were placed anterior and posteriorly on the artery. We were then able to do the same for the other groin and we were able to isolate the common femoral artery and place vessel loops proximally and distally. Once that was performed, we administered the patient 5000 units of IV heparin. We then took a micropuncture needle and punctured the right common femoral artery and micropuncture wire was inserted. A micropuncture sheath was inserted and we were able to place a 0.035 floppy guidewire up through the abdominal aortic aneurysm. We then went ahead and exchanged that. Using a [place] catheter, we exchanged that for a Lunderquist wire. In the left groin, we were able to use a micropuncture needle and puncture the left common femoral artery. Micropuncture wire was inserted and a traditional 8-Senegalese sheath was placed. In the right groin, we had an 8-Senegalese sheath in place as well. We placed a 0.035 floppy guidewire up the left common femoral artery into the aorta and into the suprarenal aorta. We then placed a sizing catheter up. Through the sizing catheter, we then visualized the abdominal aortic aneurysm via power injection and we were able to juana of our renal arteries on the screen. We then went ahead and brought the sizing catheter up. We then went ahead and placed our 1st limb, our bifurcated graft up the right common femoral artery. The 8-Senegalese sheath was removed and we were able to place a 28 x 14 103 bifurcated Endurant II stent graft system and we were able to place that below the renals and we were able to deploy it about 90% with the gate facing anteriorly. Once that was in place, we then went up the other side and we were able to use a Gerardo catheter. We then went ahead and used a Gerardo catheter and we were able to selectively cannulate our gate using a 0.035 floppy guidewire and the wire was placed into the stent graft. We then exchanged the [place] catheter for a sizing catheter and the sizing catheter turned inside the stent graft system and we were able to exchange for a Lunderquist wire and placed the Lunderquist wire up into the suprarenal aorta. We went ahead and placed our contra limb and we placed a 16 x 10 124 Endurant II contralateral limb and that was placed down above the left hypogastric artery. Prior to deploying our contralateral limb, we had taken an angiogram through our 8-Senegalese sheath in the left common femoral artery and we were able to juana off our hypogastric artery. Once that was done, we went ahead and completely deployed our bifurcated graft and we then went ahead and shot an angiogram through the right common femoral artery sheath and we were able to juana off our right hypogastric artery and we were then able to deploy the distal limb on the right side and we placed a 16 x 10 124 limb down into the right hypogastric artery. Once all the limbs had been deployed, we went ahead and used 2 Reliant balloons and ballooned the graft system into place. We then went ahead and placed our sizing catheter up to below the renals and under power injection we were able to shoot an aortogram which showed that the aneurysm was now excluded and there was good flow all the way through the graft and into the femoral arteries. At this point, we removed our sheath and we got proximal and distal control on the right and left common femoral artery. Using 6-0 Prolene double arm, we were able to close our arteriotomy in an interrupted manner. Once we closed the right common femoral artery arteriotomy, we opened the distal artery first and then the proximal artery and there was minimal bleeding. There was a good pulse in the artery and the wound was irrigated and Surgicel was placed. We then went ahead and went over to the left common femoral artery and using 6-0 Prolene double arm we closed the arteriotomy in an interrupted manner. We then opened the distal artery first and then the proximal artery and there was a good pulse in the artery and there was minimal bleeding. The wound was well irrigated and Surgicel was placed. Using 3-0 Vicryl, we were able to close the subcutaneous tissue in an interrupted manner and the skin was closed with skin mandi for both wounds. We then went ahead and placed 4 x 4 Tegaderms on both wounds and the patient was transferred to PACU in a stable condition. Patient had palpable pulses in both limbs. Patient tolerated his procedure with no complications. Total blood loss: 100 mL. DIMAS ANGLIN DO [id number]
== END 2017-04-01 15:28 | disposition home or self-care (01) | DRG 269 ==
LOC: JASUSAT 08:18 → JSAMEDAYSX 12:20 → JICU 14:20 → J8W 03-31 20:04
PROVIDERS: ADMIT Surgery Vascular Surgery; ATTEND Surgery Vascular Surgery
PROC: 04V03DZ Restriction of Abdominal Aorta with Intraluminal Device, Percutaneous Approach (ICD-10-PCS; principal; 2017-03-30 09:00)
DX: I71.4 Abdominal aortic aneurysm, without rupture (principal); I10 Essential (primary) hypertension; M54.5 Low back pain; E11.9 Type 2 diabetes mellitus without complications; E78.5 Hyperlipidemia, unspecified; J44.9 Chronic obstructive pulmonary disease, unspecified; K40.90 Unilateral inguinal hernia, without obstruction or gangrene, not specified as recurrent; M51.26 Other intervertebral disc displacement, lumbar region; E66.8 Other obesity; Z68.29 Body mass index [BMI] 29.0-29.9, adult; Z87.891 Personal history of nicotine dependence
CPT/HCPCS: 36415; 76000-TC; 80048; 80053; 82553; 83605; 83735; 84100; 84484; 85025; 85027; 86850; 86900; 86901; 86922; 94760; J1644

== ENCOUNTER 2017-12-20 07:32 | Day surgery (SDC) | payer BC ==
--- NOTE | 2017-11-28 11:49 | HP ---
DATE OF DICTATION: 10/31/2017 DATE OF SURGERY: 12/20/2017 REASON FOR ADMISSION: Cholelithiasis. BRIEF HISTORY: This is a 72-year-old gentleman whose history dates back approximately 1 to 1-1/2 years when he underwent imaging studies for his back. Along with gallstones, he was noted to have an aneurysm that was incidentally picked up. The aneurysm underwent percutaneous repair by Dr. Luis approximately one year ago. The patient is now here to deal with his gallstones. The patient had an ultrasound as well as a CAT scan of the abdomen and pelvis at [facility] in January 2017 that demonstrated findings consistent with cholelithiasis without evidence of acute cholecystitis. He states he currently has a bloating sensation at times. He has a +/- history of fatty food intolerable and has had occasional bouts of nonspecific abdominal pain in the upper abdomen, more consistent with bloating. He has had no change in stool color or urine color. PAST MEDICAL HISTORY: Significant hypertension, hypercholesterolemia, diabetes , eye disease, COPD and the aneurysm, as discussed. MEDICATIONS: 1. Enalapril. 2. Hydrocodone. 3. Ambien. 4. Tamsulosin. 5. Metformin. 6. Spiriva. 7. Gemfibrozil. 8. Ventolin. 9. Aspirin. 10. Nasacort. 11. Various eye drops. 12. Anoro Ellipta. ALLERGIES: CIPRO. SOCIAL HISTORY: He does not smoke or drink. PHYSICAL EXAMINATION: ABDOMEN: Soft, nontender and nondistended. The patient has a very protuberant abdomen. He has an upper midline diastasis from the xiphoid to the umbilicus. He has a chronically incarcerated umbilical hernia as an incidental finding. IMPRESSION/PLAN: Cholelithiasis. This is a 72-year-old gentleman with a multitude of medical problems who was noted to have cholelithiasis on a workup for his back. At this point, I am not entirely sure if he is truly symptomatic from his biliary disease or if these symptoms of generalized bloating and abdominal pain are related to other causes. In any event, the patient has a multitude of medical problems. We have discussed the pros and cons of performing elective cholecystectomy with these medical comorbidities vs. an emergent cholecystectomy. The patient and I both feel that he is better off undergoing an elective cholecystectomy and therefore, he has opted to proceed with a laparoscopic cholecystectomy at this time. The indications, alternatives and complications of the procedure were discussed and questions answered. We will plan to obtain written consent on the day of surgery. BAILEY IRVIN M.D. [id number] CC: German Hand M.D. MTDD
--- NOTE | 2017-12-19 14:46 | HP ---
DATE OF ADMISSION: 12/20/2017 Patient to undergo surgery tomorrow, December 20, 2017. HISTORY: This is a 72-year-old man who was scheduled to undergo a laparoscopic cholecystectomy under the care of Dr. Valdes for cholelithiasis and chronic cholecystitis. Now, Dr. Valdes unfortunately is not available for the procedure, and after the patient was informed, he opted to have me remove his gallbladder. As far back as 1-2 years, imaging studies have revealed evidence of findings consistent with cholecystitis and chronic cholecystitis. There has never been documented acute cholecystitis. Patient does have complaints of bloating and mild fatty-food intolerance as well. He has also had occasional bouts of rather nonspecific upper abdominal discomfort. It has been difficult to ascertain whether these symptoms are related to his gallbladder. Nonetheless, after discussion, patient had opted for cholecystectomy. PAST MEDICAL HISTORY: Significant for hypertension, hypercholesterolemia, diabetes, eye disease, COPD, and a history of cardiovascular disease with aneurysm. MEDICATIONS: Multiple, include enalapril, hydrocodone, Ambien, Flomax, metformin, Spiriva, gemfibrozil, Ventolin, aspirin, Nasacort, eye drops. ALLERGIES: CIPRO. SOCIAL HISTORY: Negative tobacco. Negative alcohol. PHYSICAL EXAMINATION: Abdomen: Soft, nontender. IMPRESSION: Cholecystitis/cholelithiasis. PLAN: Elective laparoscopic cholecystectomy, possible open cholecystectomy. Indications, alternatives, and possible complications were reviewed. Consent obtained. Patient to be seen preoperatively by Dr. German aHnd of the medical service. Please refer to those notes for those medical details. HANNAH BAEZ M.D. [id number]
[2017-12-19 15:46] VITALS: BMI 27.7
[2017-12-20] MEDS ORDERED: ERTAPENEM SODIUM 1 GM VIAL ONE (08:01)
[2017-12-20] MEDS ORDERED: ONDANSETRON 4 MG/2 ML VIAL IVPUSH PRN ×2 (09:01→10:43)
[2017-12-20] MEDS ORDERED: morphine SULFATE 4 MG/ML VIAL IVPB PRN (09:01)
[2017-12-20] MEDS ORDERED: MIDAZOLAM HCL 2 MG/2 ML SINGLE DOSE VIAL ONE (09:24)
[2017-12-20] MEDS ORDERED: PROPOFOL 20 ML ONE ×2 (09:30→10:07)
[2017-12-20] MEDS ORDERED: fentaNYL CITRATE 250 MCG/5 ML VIAL ONE (09:30)
[2017-12-20] MEDS ORDERED: ROCURONIUM BROMIDE 50 MG/5 ML VIAL ONE (09:31)
[2017-12-20] MEDS ORDERED: ERTAPENEM SODIUM 1 GM VIAL IVPB ONE (09:41)
[2017-12-20] MEDS ORDERED: DEXAMETHASONE SOD PHOSPHATE 4 MG/1 ML VIAL ONE (09:45)
[2017-12-20] MEDS ORDERED: DESFLURANE GAS 240 ML BOTTLE IH ONE (09:49)
[2017-12-20] MEDS ORDERED: ASPIRIN COATED 81 MG TABLET.EC PO SCH (10:00)
[2017-12-20] MEDS ORDERED: PATIENT'S OWN MEDICATION (NON-FORMULARY) (Triamcinolone Acetonide [Nasacort] 10.8 ML) NS SCH (10:00)
[2017-12-20] MEDS ORDERED: ARTIFICIAL TEARS (POLYVINYL ALCOHOL 1.4%) OPTH DROPS OU SCH ×2 (10:00→16:04)
[2017-12-20] MEDS ORDERED: PATIENT'S OWN MEDICATION (NON-FORMULARY) (Umeclidinium Brm/Vilanterol Tr [Anoro Ellipta 62 IH SCH (10:00)
[2017-12-20] MEDS ORDERED: ROSUVASTATIN CA 40 MG TABLET PO SCH ×2 (10:00→22:00)
[2017-12-20] MEDS ORDERED: ENOXAPARIN NA (PORCINE) 40 MG/0.4 ML DISP.SYRIN SQ SCH (10:00)
[2017-12-20] MEDS ORDERED: NEOSTIGMINE METHYLSULFATE 0.5 MG/ML - 10 ML MDV ONE (10:12)
[2017-12-20] MEDS ORDERED: GLYCOPYRROLATE 0.2 MG/1 ML VIAL ONE (10:13)
[2017-12-20] MEDS ORDERED: ALBUTEROL SO4 0.083% IH SOL 2.5 MG/3 ML VIAL.NEB. NEB ONE (10:43)
[2017-12-20] MEDS ORDERED: LACTATED RINGERS SOLUTION 1,000 ML IV SCH (10:45)
[2017-12-20] MEDS ORDERED: ACETAMINOPHEN INJECTION 100 ML IVPB ONE (11:34)
[2017-12-20] MEDS ORDERED: ACETAMINOPHEN 1000 MG/100 ML VIAL (NON FORMULARY) IVPB ONE (12:55)
--- NOTE | 2017-12-20 13:25 | OP ---
DATE OF OPERATION: 12/20/2017 PREOPERATIVE DIAGNOSIS: Chronic cholecystitis/cholelithiasis. POST OPERATIVE DIAGNOSIS: Chronic cholecystitis/cholelithiasis. PROCEDURE: Laparoscopic cholecystectomy. OPERATING SURGEON: Van Fletcher M.D. PROFESSOR OF MECHANICAL ENGINEERING: Yoseph King D.O. ANESTHESIA: Edmond Whitfield M.D. (general) HISTORY: A 72-year-old man with vague upper abdominal complaints and found to have gallstones. Patient with multiple medical issues and felt better to remove his gallbladder uncontrolled elective conditions as it was felt he would not fare as well if he presented with an acute problem. Indications, alternatives and possible complications were reviewed, consent obtained. DESCRIPTION OF PROCEDURE: With the patient in the supine position and after general anesthesia, the abdomen was prepped and draped in the usual sterile fashion using chlorhexidine. An infraumbilical incision was made through with a Veress needle was placed into the abdominal cavity. The abdominal cavity was insufflated to an adequate pressure and volume using CO2 gas. The Veress needle was removed. An 11 mm trocar port placed through the infraumbilical wound. The camera lens was passed through this port and intraabdominal cavity visualized. Two 5 mm right inferolateral ports were placed through which clamps were passed to maintain traction and aid in the dissection. An 11 mm port was placed in the epigastrium through which the operating instruments were passed. Limited exploration of the abdomen revealed several adhesions of bowel to gallbladder. The gallbladder itself, however, was pale brown color and quite thin in appearance. There were no acute inflammatory changes. The adhesions were taken down under direct vision, exposing the entire gallbladder and hepatoduodenal ligament. The peritoneum and hepatoduodenal were incised. The cystic duct was identified. The cystic duct was clipped proximally and distally and divided. The adjacent artery was managed similarly. The gallbladder was then removed from the gallbladder bladder bed, lysing its attachments to the liver using electrocautery. Prior to complete disconnection the bed was inspected and adequate hemostasis was noted. The gallbladder was disconnected and placed in a retrieval bag. The abdomen was then irrigated. The right upper quadrant was irrigated, the irrigant retrieved. Adequate hemostasis had been assured. All ports were removed under direct vision with no bleeding identified. Ultimately the gallbladder was delivered via the umbilical incision in its retrieval bag and without difficulty. Air from the peritoneum was allowed to escape. The fascia at the infraumbilical region was closed using interrupted 0-Vicryl sutures. Subcuticular Biosyn was used to close all skin incisions. COUNTS: Instrument counts were correct. ESTIMATED BLOOD LOSS: Minimal. SPECIMEN: Gallbladder. DRAINS: None. The patient tolerated the procedure and the procedure was terminated. Jean-Pierre [id number] MTDD
[2017-12-20] MEDS: SODIUM CHLORIDE 1,000 ML IV SCH ×2 (15:52→20:32)
[2017-12-20] MEDS: ALBUTEROL SO4 18 GM HFA INHALER IH SCH ×2 (15:53→15:54)
[2017-12-20] MEDS ORDERED: ALBUTEROL SO4 18 GM HFA INHALER IH PRN ×2 (16:05)
[2017-12-20] MEDS ORDERED: PT OWN MED DRAWER 7, Y5N ONE (19:28)
[2017-12-20] MEDS: ACETAMINOPHEN 325 MG TABLET (FP) PO PRN (20:35)
[2017-12-20] MEDS: oxyCODONE HCL 5 MG TABLET PO PRN (20:36)
[2017-12-20] MEDS ORDERED: ZOLPIDEM TARTRATE 5 MG TABLET PO PRN (22:00)
[2017-12-21] MEDS: oxyCODONE HCL 5 MG TABLET PO PRN ×2 (00:36→08:09)
[2017-12-21] MEDS: ACETAMINOPHEN 325 MG TABLET (FP) PO PRN (00:37)
[2017-12-21] MEDS ORDERED: TAMSULOSIN HCL 0.4 MG CAP.ER.24H (FP) PO SCH (08:30)
[2017-12-21] MEDS: SODIUM CHLORIDE 1,000 ML IV SCH (09:27)
[2017-12-21] MEDS: ENOXAPARIN NA (PORCINE) 40 MG/0.4 ML DISP.SYRIN SQ SCH ×2 (09:28→09:40)
[2017-12-21] MEDS ORDERED: ATENOLOL 50 MG TABLET (FP) PO SCH (10:00)
[2017-12-21] MEDS ORDERED: ASPIRIN COATED 81 MG TABLET.EC PO SCH (10:00)
[2017-12-21] MEDS ORDERED: PANTOPRAZOLE SODIUM 40 MG VIAL IVPUSH SCH (10:00)
[2017-12-21 12:47] VITALS: BP 133/75; PULSE 69; TEMP 97.8
--- NOTE | 2017-12-21 15:56 | PATH ---
Surgical Pathology Report Patient Name: ENRIQUE KIM [facility] Rec. #: [id number] /Age/Gender: 1945 (Age: 72) / M Account: [id number] Location: AMBULATORY SURG Taken: 12/20/2017 Received: 12/20/2017 Reported: 12/21/2017 Physicians: Van Fletcher M.D. Specimen(s) Received GALLBLADDER Clinical History Calculus the gallbladder Final Diagnosis GALLBLADDER, CHOLECYSTECTOMY: CHRONIC CHOLECYSTITIS, CHOLELITHIASIS AND REACTIVE ADENOMYOMATOUS HYPERPLASIA. Electronically Signed Taya Salazar M.D. Gross Description Received in formalin, labeled "gallbladder," is an 8.8 x 2.5 x 2.2 cm. gallbladder with a 0.2 cm. in length portion of cystic duct attached. The outer surface is cooper-pink and varies from smooth to shaggy. The lumen contains cooper, tenacious bile as well as abundant black, irregular calculi ranging from 0.1-0.9 cm in greatest dimension. There is a 1.1 x 1.0 cm submucosal mass present at the fundus. The mucosa is cooper with focal erosions. The wall of the gallbladder averages 0.1 cm. in thickness. Truck Trailer Mechanic sections are submitted in 2 cassettes as follows: 1-cystic duct margin and licensing representative gallbladder mucosa; 2-fundic mass. /12/20/201712/20/2017
[2017-12-21] MEDS ORDERED: ARTIFICIAL TEARS (POLYVINYL ALCOHOL 1.4%) OPTH DROPS OU SCH (16:15)
[2017-12-21] MEDS ORDERED: ROSUVASTATIN CA 20 MG TABLET (FP) PO SCH (22:00)
== END 2017-12-21 12:47 | disposition home or self-care (01) ==
LOC: JASUSAT 07:32 → J8W 15:48 → JASUSAT 12-21 12:47
PROVIDERS: ATTEND Surgery
PROC: 0FT44ZZ Resection of Gallbladder, Percutaneous Endoscopic Approach (ICD-10-PCS; principal; 2017-12-20 09:30)
DX: K80.10 Calculus of gallbladder with chronic cholecystitis without obstruction (principal); J44.9 Chronic obstructive pulmonary disease, unspecified; I10 Essential (primary) hypertension; E11.9 Type 2 diabetes mellitus without complications; Z79.84 Long term (current) use of oral hypoglycemic drugs
CPT/HCPCS: 82962; 88304-TC; 94760; J0131; J7030

== ENCOUNTER 2018-03-19 22:36 | Emergency (ER) | payer BC ==
[2018-03-19 22:45] VITALS: BP 180/73; PULSE 85; TEMP 98.5; BMI 27.7
--- NOTE | 2018-03-19 23:54 | PDOC ---
History of Present Illness - General Chief Complaint: Allergic Reaction Stated Complaint: RASH History Source: Patient Exam Limitations: No Limitations - History of Present Illness Initial Comments: 03/19/18 23:52 73 yo M with h/o DM on metformin here with c/o allergic reeaction. pruritic rash. pt started noticing diffuse pruritic rash. did recently start a new medication but started after rash had already developed. no f/c states itching is unbearable. did not take anything prior to arrival. no lip swelling. no tongue swelling. no new lotiosn detergents food. or new pet. Past History - Past Medical History Allergies/Adverse Reactions: Allergies Allergy/AdvReac Type Severity Reaction Status Date / Time ciprofloxacin [From Cipro] Allergy "SWELL UP" Verified 03/19/18 22:42 ciprofloxacin HCl Allergy "SWELL UP" Verified 03/19/18 22:42 [From Cipro] Home Medications: Ambulatory Orders Zolpidem Tartrate [Ambien] 5 mg PO HS 04/22/12 Hydrocodone/Acetaminophen [Vicodin 5-300 mg Tablet] 1 each PO PRN PRN 08/21/14 Aspirin Coated [Ecotrin -] 81 mg PO DAILY 03/29/17 Metformin HCl [Metformin HCl ER] 1,000 mg PO BID 03/29/17 Tamsulosin HCl [Flomax -] 0.4 mg PO DAILY 03/29/17 Albuterol Sulfate Inhaler - [Ventolin HFA Inhaler -] 1 - 2 inh PO QID 12/20/17 Atenolol [Tenormin -] 100 mg PO DAILY 12/20/17 Polyvinyl Alcohol [Tears Again] 15 ml OP DAILY 12/20/17 Rosuvastatin [Crestor -] 40 mg PO DAILY 12/20/17 Triamcinolone Acetonide [Nasacort] 10.8 ml NS DAILY 12/20/17 Umeclidinium Brm/Vilanterol Tr [Anoro Ellipta 62.5-25 Mcg INH] 1 each IH DAILY 12/20/17 Acetaminophen [Tylenol .Regular Strength -] 650 mg PO Q4H PRN tablet 12/21/17 Albuterol Sulfate Inhaler - [Ventolin HFA Inhaler -] 1 puff IH Q6H PRN inhaler 12/21/17 Albuterol Sulfate Inhaler - [Ventolin HFA Inhaler -] 2 puff IH Q6H PRN inhaler 12/21/17 Rosuvastatin [Crestor -] 40 mg PO HS tablet 12/21/17 Rosuvastatin [Crestor -] 40 mg PO HS tablet 12/21/17 Prednisone [Deltasone] 20 mg PO BID 5 Days #10 tablet 03/20/18 Anemia: No Asthma: No Cancer: No Cardiac Disorders: No CVA: No COPD: Yes CHF: No Dementia: No Diabetes: Yes GI Disorders: No Disorders: No HTN: Yes Hypercholesterolemia: Yes Liver Disease: No Seizures: No Thyroid Disease: No - Surgical History Abdominal Surgery: Yes (HERNIA REPAIR) Cholecystectomy: Yes - Suicide/Smoking/Psychosocial Hx Smoking Status: Yes Smoking History: Never smoked Have you smoked in the past 12 months: No Number of Cigarettes Smoked Daily: 20 If you are a former smoker, when did you quit?: 4 years Information on smoking cessation initiated: No 'Breaking Loose' booklet given: 01/14/13 Hx Alcohol Use: No Drug/Substance Use Hx: No Substance Use Type: None Hx Substance Use Treatment: No Review of Systems - Review of Systems Constitutional: No: Chills, Diaphoresis HEENTM: No: Eye Pain Respiratory: No: Cough, Orthopnea, Shortness of Breath Cardiac (ROS): No: Chest Pain, Edema : No: Burning, Dysuria Integumentary: Yes: Pruritus, Rash. No: Bruising, Change in Color All Other Systems: Reviewed and Negative *Physical Exam - Vital Signs Last Vital Signs Temp Pulse Resp BP Pulse Ox 98.5 F 85 18 180/73 96 03/19/18 22:39 03/19/18 22:39 03/19/18 22:39 03/19/18 22:39 03/19/18 22:39 - Physical Exam General Appearance: Yes: Appropriately Dressed HEENT: positive: Pharynx Normal Neck: positive: Trachea midline Respiratory/Chest: positive: Lungs Clear, Normal Breath Sounds Cardiovascular: positive: Regular Rhythm, Regular Rate, S1, S2 Integumentary: positive: Dry, Warm, Hives, Other (dermatitis type maculopapular erythematous rash. increase in flexion areas. and extensor surfaces. ) Medical Decision Making - Medical Decision Making 03/20/18 00:47 allergic dermatitis or atopic dermatitis appearing rash. x 3 week. no known inciting med, however worse since started meds. rec dc meds. will start on short course of steroids, topical hydrocortisone, and benadryl. derm referral. *DC/Admit/Observation/Transfer Diagnosis at time of Disposition: Allergic dermatitis - Discharge Dispostion Disposition: HOME Condition at time of disposition: Improved - Prescriptions Prescriptions: Prednisone [Deltasone] 20 mg PO BID 5 Days #10 tablet - Referrals Referrals: German Hand MD [Primary Care Provider] - Hoa Mesa MD [Staff Physician] - - Patient Instructions Printed Discharge Instructions: DI for General Allergic Reactions, DI for Atopic Dermatitis - Adult Additional Instructions: you should take prednisone 20 mg twice daily x 5 days starting tomorrow 06/19 in the evening. take benadryl 25 mg every 6 hrs as needed for itching. you should also follow up with your primary doctor to discuss glucose control as it can increase your sugar slightly. return for tongue or lip swelling or any concerns. you should also follow up with dermatology. see referral for DR Mesa or obtain a referral from your primary doctor. you can apply topical hydrocortisone cream to help with itching (avoid face and genital area). you shoudl stop the new medication you started taking as it may be worsening your symptoms. - Post Discharge Activity
[2018-03-19] MEDS ORDERED: diphenhydrAMINE HCL 50 MG CAPSULE PO ONE (23:56)
[2018-03-19] MEDS ORDERED: predniSONE 20 MG TABLET (UD) PO ONE (23:56)
[2018-03-20] MEDS ORDERED: predniSONE 20 MG TABLET (UD) ONE (00:07)
[2018-03-20] MEDS ORDERED: diphenhydrAMINE HCL 25 MG CAPSULE (FP) PO ONE (00:07)
== END 2018-03-20 01:56 | disposition home or self-care (01) ==
LOC: JER 22:36
DX: L23.9 Allergic contact dermatitis, unspecified cause (principal); J44.9 Chronic obstructive pulmonary disease, unspecified; E78.00 Pure hypercholesterolemia, unspecified; I10 Essential (primary) hypertension; E11.9 Type 2 diabetes mellitus without complications; Z87.891 Personal history of nicotine dependence
CPT/HCPCS: 99282-25

== ENCOUNTER 2021-10-11 22:46 | Observation (INO) | payer BC ==
[2021-10-12 01:26] LABS: BASO % 0.9 % (0-2.0); EOS % 6.5 % (0-4.5); HEMATOCRIT 37.3 % (35.4-49); HEMOGLOBIN 12.5 GM/dL (11.7-16.9); LYMPH % 22.2 % (8-40); MCH 29.4 pg (25.7-33.7); MCHC 33.5 g/dl (32.0-35.9); MEAN CELL VOLUME 87.6 fl (80-96); MEAN PLT VOLUME 7.5 fl (7.5-11.1); MONO % 9.9 % (3.8-10.2); NEUT % 60.5 % (42.8-82.8); PLATELET COUNT 457 10^3/uL (134-434); RBC 4.26 M/mm3 (4.00-5.60); RDW 14.7 % (11.9-15.9); WHITE BLOOD COUNT 6.6 K/mm3 (4.0-10.0)
[2021-10-12 02:29] LABS: ALBUMIN 2.8 g/dl (3.4-5.0); BILIRUBIN,TOTAL 0.2 mg/dL (0.2-1); BLOOD UREA NITROGEN 42.8 mg/dL (7-18); CALCIUM 9.5 mg/dL (8.5-10.1); CREATININE 1.6 mg/dL (0.55-1.3); N-TERMINAL BNP 340.1 pg/ml (5-125)
[2021-10-12 02:32] LABS: INR 1.25 (0.83-1.09); PROTHROMBIN TIME (PATIENT) 14.4 SEC (9.7-13.0)
[2021-10-12 02:35] LABS: ACTIVATED PTT 34.9 SECONDS (25.2-36.5)
[2021-10-12] MEDS ORDERED: ALBUTEROL SO4 2.5/IPRATROPIUM 0.5 INH SOL 3 ML VIAL.NEB. NEB ONE ×2 (05:16→05:37)
[2021-10-12] MEDS ORDERED: methylPREDNISolone NA SUCC 40 MG/1 ML VIAL ONE (08:34)
[2021-10-12] MEDS: methylPREDNISolone NA SUCC 40 MG/1 ML VIAL IVPB SCH ×3 (08:56→21:19)
[2021-10-12] MEDS ORDERED: ALBUTEROL SO4 HFA INHALER IH PRN ×2 (09:31→22:00)
[2021-10-12] MEDS ORDERED: ARTIFICIAL TEARS (POLYVINYL ALCOHOL) OPTH DROPS OU PRN (09:31)
[2021-10-12] MEDS ORDERED: ALBUTEROL SO4 2.5/IPRATROPIUM 0.5 INH SOL 3 ML VIAL.NEB. NEB PRN (09:36)
[2021-10-12] MEDS: UMECLIDINIUM/VILANTEROL (ANORO) 62.5/25 MCG INHALER IH SCH (10:30)
[2021-10-12] MEDS: ATENOLOL 50 MG TABLET (FP) PO SCH (10:30)
[2021-10-12] MEDS ORDERED: ZOLPIDEM TARTRATE 5 MG TABLET PO PRN (11:09)
[2021-10-12 13:03] VITALS: BMI 28.5
[2021-10-12] MEDS: metFORMIN HCL 500 MG TABLET (FP) PO SCH (17:14)
[2021-10-12] MEDS: ROSUVASTATIN CA 20 MG TABLET PO SCH (21:19)
[2021-10-13] MEDS: methylPREDNISolone NA SUCC 40 MG/1 ML VIAL IVPB SCH ×4 (02:50→21:22)
[2021-10-13] MEDS: metFORMIN HCL 500 MG TABLET (FP) PO SCH ×2 (06:23→17:24)
[2021-10-13 09:19] LABS: BASO % 0.3 % (0-2.0); EOS % 0.1 % (0-4.5); HEMATOCRIT 38.7 % (35.4-49); HEMOGLOBIN 12.9 GM/dL (11.7-16.9); LYMPH % 13.6 % (8-40); MCH 29.7 pg (25.7-33.7); MCHC 33.4 g/dl (32.0-35.9); MEAN CELL VOLUME 88.9 fl (80-96); MEAN PLT VOLUME 7.8 fl (7.5-11.1); MONO % 4.2 % (3.8-10.2); NEUT % 81.8 % (42.8-82.8); PLATELET COUNT 571 10^3/uL (134-434); RBC 4.35 M/mm3 (4.00-5.60); RDW 14.3 % (11.9-15.9); WHITE BLOOD COUNT 8.9 K/mm3 (4.0-10.0)
[2021-10-13 09:49] LABS: INR 1.15 (0.83-1.09); PROTHROMBIN TIME (PATIENT) 13.2 SEC (9.7-13.0)
[2021-10-13] MEDS: ASPIRIN COATED 81 MG TABLET.EC PO SCH (09:50)
[2021-10-13] MEDS: HYDROCHLOROTHIAZIDE 25 MG TABLET (FP) PO SCH (09:50)
[2021-10-13] MEDS: ATENOLOL 50 MG TABLET (FP) PO SCH (09:50)
[2021-10-13] MEDS: amLODIPine BESYLATE 5 MG TABLET (FP) PO SCH (09:51)
[2021-10-13 09:55] LABS: CALCIUM 9.7 mg/dL (8.5-10.1)
[2021-10-13 09:57] LABS: ALBUMIN 2.9 g/dl (3.4-5.0); BLOOD UREA NITROGEN 38.7 mg/dL (7-18)
[2021-10-13 09:59] LABS: CREATININE 1.1 mg/dL (0.55-1.3)
[2021-10-13 10:01] LABS: BILIRUBIN,TOTAL 0.3 mg/dL (0.2-1); TOT PROT 8.8 g/dl (6.4-8.2)
[2021-10-13] MEDS ORDERED: SODIUM POLYSTYRENE SULFONATE 15 GM/60 ML BOTTLE PO ONE (11:30)
[2021-10-13] MEDS: ENALAPRIL MALEATE 10 MG TABLET PO SCH (11:44)
[2021-10-13] MEDS: UMECLIDINIUM/VILANTEROL (ANORO) 62.5/25 MCG INHALER IH SCH (11:44)
[2021-10-13] MEDS: ROSUVASTATIN CA 20 MG TABLET PO SCH (21:20)
[2021-10-14] MEDS: methylPREDNISolone NA SUCC 40 MG/1 ML VIAL IVPB SCH ×3 (02:09→15:41)
[2021-10-14] MEDS: metFORMIN HCL 500 MG TABLET (FP) PO SCH ×2 (06:23→15:42)
[2021-10-14] MEDS: amLODIPine BESYLATE 5 MG TABLET (FP) PO SCH (10:08)
[2021-10-14] MEDS: HYDROCHLOROTHIAZIDE 25 MG TABLET (FP) PO SCH (10:08)
[2021-10-14] MEDS: ASPIRIN COATED 81 MG TABLET.EC PO SCH (10:09)
[2021-10-14] MEDS: ENALAPRIL MALEATE 10 MG TABLET PO SCH (10:09)
[2021-10-14] MEDS: ATENOLOL 50 MG TABLET (FP) PO SCH (10:09)
[2021-10-14] MEDS: UMECLIDINIUM/VILANTEROL (ANORO) 62.5/25 MCG INHALER IH SCH (10:10)
[2021-10-14] MEDS ORDERED: ACETAMINOPHEN 325 MG TABLET (FP) PO ONE (10:45)
[2021-10-14 13:29] VITALS: BP 139/69; PULSE 73; TEMP 97.6
== END 2021-10-14 18:06 | disposition home health service (06) ==
LOC: JER 22:46 → INTOOBSV 10-12 01:27 → JERBED 10-12 01:27 → UNDOADMOB 10-12 01:27 → JERBED 10-12 09:13 → J8W 10-12 09:13 → JERBED 10-12 09:25 → J8W 10-12 12:13
PROVIDERS: ADMIT Family Medicine; ATTEND Family Medicine
PROC: 3E0F7GC Introduction of Other Therapeutic Substance into Respiratory Tract, Via Natural or Artificial Opening (ICD-10-PCS; principal; 2021-10-12)
DX: J44.9 Chronic obstructive pulmonary disease, unspecified (principal); J44.1 Chronic obstructive pulmonary disease with (acute) exacerbation; I71.4 Abdominal aortic aneurysm, without rupture; E78.5 Hyperlipidemia, unspecified; G89.29 Other chronic pain; M54.50 Low back pain, unspecified; Z87.891 Personal history of nicotine dependence; I10 Essential (primary) hypertension; Z88.1 Allergy status to other antibiotic agents
CPT/HCPCS: 36415; 71046-TC-FY; 71275-TC; 80053; 82962; 83036; 83880; 84484; 85025; 85610; 85730; 93005; 93010; 93306-TC; 94010; 94150; 94640; 94761; 99285-25; C9803-CS; G0378; U0003; U0005

== ENCOUNTER 2023-11-28 10:24 | Emergency (ER) | payer BC, OTHER ==
[2023-11-28 11:18] VITALS: RESP 16; BMI 29.0
[2023-11-28 11:40] LABS: BASO % 1.1 % (0-2.0); EOS % 5.1 % (0-4.5); HEMATOCRIT 38.7 % (35.4-49); HEMOGLOBIN 13.3 GM/dL (11.7-16.9); LYMPH % 15.7 % (8-40); MCH 30.5 pg (25.7-33.7); MCHC 34.3 g/dl (32.0-35.9); MEAN CELL VOLUME 88.9 fl (80-96); MEAN PLT VOLUME 8.3 fl (7.5-11.1); MONO % 6.2 % (3.8-10.2); NEUT % 71.9 % (42.8-82.8); PLATELET COUNT 447 10^3/uL (134-434); RBC 4.35 M/mm3 (4.00-5.60); RDW 14.3 % (11.9-15.9); WHITE BLOOD COUNT 9.4 K/mm3 (4.0-10.0)
[2023-11-28 11:48] LABS: INR 1.09 (0.83-1.09); PROTHROMBIN TIME (PATIENT) 12.3 SEC (9.7-13.0)
[2023-11-28 11:51] LABS: ACTIVATED PTT 35.4 SECONDS (25.2-36.5)
[2023-11-28 12:19] LABS: POTASSIUM 4.5 mmol/L (3.5-5.1)
[2023-11-28 12:21] LABS: ALBUMIN 3.4 g/dl (3.4-5.0); CALCIUM 10.3 mg/dL (8.5-10.1)
[2023-11-28 12:22] LABS: BLOOD UREA NITROGEN 35.5 mg/dL (7-18)
[2023-11-28 12:25] LABS: CREATININE 1.6 mg/dL (0.55-1.3)
[2023-11-28 12:26] LABS: BILIRUBIN,TOTAL 0.3 mg/dL (0.2-1); TOT PROT 8.1 g/dl (6.4-8.2)
[2023-11-28] MEDS: SODIUM CHLORIDE 0.9% 500 ML INFUS.BAG IV ONE (12:44)
[2023-11-28 14:01] VITALS: BP 158/72; PULSE 66; TEMP 97.4
== END 2023-11-28 14:30 | disposition home or self-care (01) ==
LOC: JER 10:24
DX: K62.5 Hemorrhage of anus and rectum (principal); R94.4 Abnormal results of kidney function studies
CPT/HCPCS: 36415; 80053; 82272; 85025; 85610; 85730; 86850; 86900; 86901; 99283-25